=== PATIENT | male | born 1985 | race Caucasian/White ===

== ENCOUNTER 2017-02-14 15:51 | Emergency (ER) | payer OTHER, SELFPAY ==
[2017-02-14 15:56] VITALS: BMI 21.2
[2017-02-14 16:00] VITALS: BP 131/88; PULSE 79; RESP 18; TEMP 98.6; O2SAT 99
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
[2017-02-14] MEDS ORDERED: TDAP Vaccine 0.5 mL Syr IM ONE (18:51)
[2017-02-14] MEDS ORDERED: Bacitracin Ointment 30 GM TUBE TOP STA (18:52)
[2017-02-14] MEDS ORDERED: Naproxen 550 mg Tab PO STA (18:54)
--- NOTE | 2017-02-14 19:44 | RAD ---
HISTORY: pain COMPARISON: Chest x-ray performed 04/16/13 TECHNIQUE: Chest PA and lateral FINDINGS: LUNGS: No focal consolidation. Please note that chest x-ray has limited sensitivity for the detection of pulmonary masses. PLEURA: No significant pleural effusion identified. No definite pneumothorax . CARDIOVASCULAR: Heart size appears top normal. OSSEOUS STRUCTURES: No acute osseous abnormality identified. VISUALIZED UPPER ABDOMEN: Unremarkable. OTHER FINDINGS: None. IMPRESSION: No focal consolidation, significant pleural effusion, or definite pneumothorax identified.
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
--- NOTE | 2017-02-14 19:50 | RAD ---
PROCEDURE: Cervical Spine Radiographs. HISTORY: Pain. COMPARISON: None available. FINDINGS: BONES: Alignment appears satisfactory. No acute displaced fracture or subluxation identified. The dens appears intact. DISC SPACES: Unremarkable. SOFT TISSUES: Unremarkable. No prevertebral soft tissue swelling. OTHER FINDINGS: None. IMPRESSION: No acute displaced fracture or subluxation identified.
== END 2017-02-14 19:28 | disposition home or self-care (01) ==
LOC: ED 15:51
DX: S00.83XA Contusion of other part of head, initial encounter (principal); S16.1XXA Strain of muscle, fascia and tendon at neck level, initial encounter; V49.9XXA Car occupant (driver) (passenger) injured in unspecified traffic accident, initial encounter; Y92.410 Unspecified street and highway as the place of occurrence of the external cause; M54.9 Dorsalgia, unspecified; Z23 Encounter for immunization

== ENCOUNTER 2017-06-05 11:08 | Emergency (ER) | payer OTHER ==
[2017-06-05 11:08] VITALS: BMI 21.2
[2017-06-05 11:28] VITALS: TEMP 98.8
[2017-06-05] MEDS ORDERED: Sodium Chloride 0.9% 1,000 ML IV STA (12:09)
--- NOTE | 2017-06-05 12:14 | ED PDOC ---
Arrival/HPI - General Chief Complaint: ENT Problem Time Seen by Provider: 06/05/17 12:08 Historian: Patient - History of Present Illness Narrative History of Present Illness (Text): 06/05/17 12:13 pt p/w + worsening throat pain, and voice loss x 1 day; URI like symptoms 3-4 days ago; ? sick contact; + runny nose/congestion over the last few days; pt states no body aches, no headaches, + dry coughing; over the last day with difficulty swallowing due to throat pain, no drooling, lost his voice last night ; pt states no fever, ? subjective warmth, no chills/sweats, no cp/sob/ palpitations, no abd pain, no n/v, no numbness/tingling, no urinary/bowel changes, no fall/trauma/travel; pt denied other complaints pt is here for further eval. PCP: NONE immunization: not up to date Time/Duration: < week Symptom Onset: Sudden Symptom Course: Other (constant) Quality: Fullness Severity Level: Severe Activities at Onset: Rest Context: Home Past Medical History - Provider Review Nursing Documentation Reviewed: Yes - Travel History Have you recently traveled outside [place] w/in the past 3 mons?: No - Past History Past History: No Previous - Infectious Disease Hx of Infectious Diseases: None - Tetanus Immunization Tetanus Immunization: Unknown - Past Medical History Past Medical History: No Previous - Psychiatric Hx Psychophysiologic Disorder: No Hx Substance Use: No - Past Surgical History Past Surgical History: No Previous - Anesthesia Hx Anesthesia: No - Suicidal Assessment Feels Threatened In Home Enviroment: No Family/Social History - Physician Review Nursing Documentation Reviewed: Yes Family/Social History: No Known Family HX Smoking Status: Light Smoker < 10 Cigarettes Daily Hx Alcohol Use: Yes Hx Substance Use: No Hx Substance Use Treatment: No Allergies/Home Meds Allergies/Adverse Reactions: Allergies No Known Allergies Allergy (Verified 06/05/17 11:24) Review of Systems - Review of Systems Constitutional: Fatigue, Fevers (?) Eyes: Normal ENT: Voice Changes, Sore Throat. absent: Rhinorrhea, Sinus Congestion Respiratory: absent: SOB, Cough Cardiovascular: absent: Chest Pain Gastrointestinal: absent: Abdominal Pain, Nausea, Vomiting Genitourinary Male: Normal Musculoskeletal: Normal Skin: Normal Neurological: Normal Endocrine: Normal Hemo/Lymphatic: Normal Psychiatric: Normal Physical Exam Vital Signs Reviewed: Yes Vital Signs Temp Pulse Resp BP Pulse Ox 06/05/17 13:05 87 18 145/88 100 06/05/17 11:25 98.8 F 95 H 17 120/79 98 Temperature: Afebrile Blood Pressure: Normal Pulse: Tachycardic Respiratory Rate: Normal Appearance: Positive for: Well-Appearing, Non-Toxic, Uncomfortable, Other ( resting in bed, alert/awake, GCS = 15, oriented x 3, uncomfortable, moderate distress due to swallowing throat pain) Pain Distress: Moderate Mental Status: Positive for: Alert and Oriented X 3 - Systems Exam Head: Present: Atraumatic, Normocephalic Pupils: Present: PERRL, Other (no photophobia, sclera anicteric, no nystagmus, visual field intact b/l) Extroacular Muscles: Present: EOMI Conjunctiva: Present: Normal Ears: Present: Normal, NORMAL TM, Normal Canal. No: TM Bulging Mouth: Present: Moist Mucous Membranes, Normal Teeth, Other (no drooling/stridor , no dysphonia, + hoarseness to voice (lost of voice), no muffled voice, no crepitus) Pharnyx: Present: Normal, Other (+ anterior LAD b/l, non-fluctuant, + tenderness on exam). No: ERYTHEMA, EXUDATE, TONSILS ENLARGED Nose (External): Present: Atraumatic Nose (Internal): Present: Normal Inspection Neck: Present: Normal Range of Motion, Trachea Midline, Other (no midline tenderness, no setp off, no meningeal signs, no nuchal rigidity, intact ROM). No: MIDLINE TENDERNESS Respiratory/Chest: Present: Clear to Auscultation, Good Air Exchange, Other ( CTA b/l, no w/r/r) Cardiovascular: Present: Regular Rate and Rhythm, Normal S1, S2. No: Murmurs Abdomen: Present: Normal Bowel Sounds, Other (well nourished male, no focal tenderness, no luna's sign, no mcburney's point tenderness, no masses/rebound/ guarding/rigidity) Back: Present: Normal Inspection, Other (no gross deformities). No: CVA Tenderness, Midline Tenderness Upper Extremity: Present: Normal Inspection, Normal ROM, NORMAL PULSES, Neurovascularly Intact, Capillary Refill < 2s Lower Extremity: Present: Normal Inspection, NORMAL PULSES, Normal ROM, Neurovascularly Intact, Capillary Refill < 2 s. No: Edema, CALF TENDERNESS, Joanna's Sign, Deformity Neurological: Present: GCS=15, CN II-XII Intact, Speech Normal Skin: Present: Warm, Dry, Normal Color, Other (cap refill < 1 sec, no ulcerations, no petechiae) Psychiatric: Present: Alert, Oriented x 3 Medical Decision Making ED Course and Treatment: 06/05/17 12:13 Impression: throat pain, swallow difficulty i have consider all the differential diagnosis regarding pt's chief medical complaints/clinical findings, including but are not limited to: likely viral, unlikely bacterial; unlikely ludwigs A/P: throat pain, swallow difficulties - labs - iv - xray - observe - supportive care 06/05/17 14:42 pt is doing well pt is feeling improved, still with throat discomfort pt is able to swallow/eat/drink pt tolerated po well pt is made aware of his medical results pt is encouraged fluids pt will f/u as directed pt will be discharged home Re-evaluation Time: 14:42 Reassessment Condition: Improving,but remains with symptoms - Lab Interpretations Lab Results: 06/05/17 12:30 06/05/17 12:30 Lab Results 06/05/17 13:45: Influenza Typ A,B (EIA) Negative for flu a/b 06/05/17 13:30: Grp A Beta Strep Ag Negative 06/05/17 12:30: pO2 32, VBG pH 7.33, VBG pCO2 55.0, VBG HCO3 29.0 H, VBG Total CO2 30.7 H, VBG O2 Sat (Calc) 61.8, VBG Base Excess 1.9, VBG Potassium 4.3, Sodium 140.0, Chloride 105.0, Glucose 87, Lactate 1.0, FiO2 21.0, Venous Blood Potassium 4.3 06/05/17 12:30: Sodium 145, Chloride 105, Potassium 4.2, Carbon Dioxide 24, Anion Gap 19, BUN 13, Creatinine 0.7 L, Est GFR ( Amer) > 60, Est GFR ( Non-Af Amer) > 60, Random Glucose 87, Calcium 10.2, Total Bilirubin 0.5, AST 27 , ALT 36, Alkaline Phosphatase 72, Total Protein 8.4 H, Albumin 4.8, Globulin 3.6, Albumin/Globulin Ratio 1.3 06/05/17 12:30: WBC 6.7, RBC 5.45, Hgb 16.4, Hct 46.2, MCV 84.8, MCH 30.1, MCHC 35.5, RDW 13.1, Plt Count 178, MPV 11.8 H, Gran % 64.8, Lymph % (Auto) 23.1, [place] % (Auto) 11.5 H, Eos % (Auto) 0.3 L, Baso % (Auto) 0.3, Gran # 4.33, Lymph # (Auto) 1.5, [place] # (Auto) 0.8 H, Eos # (Auto) 0.0, Baso # (Auto) 0.02 I have reviewed the lab results: Yes Interpretation: All labs normal - RAD Interpretation Narrative RAD Interpretations (Text): Report Date : 06/05/2017 13:55:11 PROCEDURE: Radiographs of the neck (soft tissue). Dictator : Elizabeth Winter MD IMPRESSION: No evidence of radiopaque foreign body, airway obstruction or epiglottitis. Radiology Orders: 06/05/17 13:08 NECK SOFT TISSUE [RAD] Stat Riveter Helper: Radiologist - Medication Orders Current Medication Orders: Discontinued Medications Dexamethasone (Decadron Inj) 10 mg IVP STAT STA Stop: 06/05/17 12:12 Last Admin: 06/05/17 12:30 Dose: 10 mg IVP Administration Document 06/05/17 12:30 HI (Rec: 06/05/17 12:50 WA [id number]) Charges for Administration # of IVP Administrations 1 Sodium Chloride (Sodium Chloride 0.9%) 1,000 mls @ 999 mls/hr IV .Q1H1M STA Stop: 06/05/17 13:09 Last Admin: 06/05/17 12:48 Dose: 999 mls/hr eMAR Start Stop Document 06/05/17 12:48 HI (Rec: 06/05/17 12:49 [place] [id number]) Intravenous Solution Start Date 06/05/17 Start Time 12:49 Ketorolac Tromethamine (Toradol) 30 mg IVP STAT STA Stop: 06/05/17 12:13 Last Admin: 06/05/17 12:30 Dose: 30 mg MAR Pain Assessment Document 06/05/17 12:30 HI (Rec: 06/05/17 12:49 HI [id number]) Pain Reassessment Is this a pain reassessment? No Pain Scale Used Pain Scale Used Numeric Location Pain Location Body Site Throat Description Description Sharp Intensity of Pain at present 10 Pain Behavior Moaning Facial Grimacing IVP Administration Document 06/05/17 12:30 HI (Rec: 06/05/17 12:49 HI [id number]) Charges for Administration # of IVP Administrations 1 Lidocaine HCl (Lidocaine 2% Viscous) 15 ml MM STAT STA Stop: 06/05/17 12:13 Last Admin: 06/05/17 12:30 Dose: 15 ml Disposition/Present on Arrival - Present on Arrival Any Indicators Present on Arrival: No History of DVT/PE: No History of Uncontrolled Diabetes: No Urinary Catheter: No History of Decub. Ulcer: No History Surgical Site Infection Following: None - Disposition Have Diagnosis and Disposition been Completed?: Yes Diagnosis: Throat pain in adult, Viral pharyngitis Disposition: HOME/ ROUTINE Disposition Time: 14:46 Patient Plan: Discharge Patient Problems: Current Active Problems Problem Status Onset Throat pain in adult Acute Viral pharyngitis Acute Condition: STABLE Discharge Instructions (ExitCare): Viral Pharyngitis, Sore Throat in Adults Print Language: CITIZEN OF [place] Additional Instructions: Make sure to see your doctor in 1-2 days DRINK PLENTY OF FLUIDS take your medications as prescribed RETURN TO ED IF worse pain, cant breath, persistent vomiting, high fever >101- 102 for hours, altered behavior, unable to urinate, drooling/cant swallow, severe wheezing, heavy/persistent bleeding, passing out, chest pain, or other medical emergencies Prescriptions: Ibuprofen [Motrin] 400 mg PO QID PRN #30 tab PRN Reason: Pain, Mild (1-3) Lidocaine 2% Viscous 10 ml MM TID PRN #100 ml PRN Reason: Pain, Mild (1-3) Referrals: Mamadou Bailon MD [Primary Care Provider] - Follow up with primary [facility] [Outside] - [place] up with primary [facility] [place] - Follow up with primary Forms: [employer] (Citizen Of [place]), WORK NOTE
[2017-06-05 12:52] LABS: BASO # 0.02 K/mm3 (0.0-2.0); BASO % 0.3 % (0.0-3.0); EOS % 0.3 % (1.5-5.0); GRAN # 4.33 (1.4-6.5); GRAN % 64.8 % (50.0-68.0); HEMOGLOBIN 16.4 g/dL (14.0-18.0); LYMPH # 1.5 (1.2-3.4); LYMPH % 23.1 % (22.0-35.0); MEAN CELL VOLUME 84.8 fl (80.0-105.0); MEAN CORPUSCULAR HEMOGLOBIN 30.1 pg (25.0-35.0); MEAN CORPUSCULAR HGB CONC 35.5 g/dl (31.0-37.0); MEAN PLATELET VOLUME 11.8 fl (7.0-11.0); MONO # 0.8 (0.1-0.6); MONO % 11.5 % (1.0-6.0); RBC 5.45 10^6/uL (3.5-6.1); RED CELL DISTRIBUTION WIDTH 13.1 % (11.5-14.5); VENOUS BLOOD GAS BASE EXCESS 1.9 mmol/L (0.0-2.0); VENOUS BLOOD GAS PO2 32 mm/Hg (30-55); VENOUS BLOOD PH 7.33 (7.32-7.43); WHITE BLOOD COUNT 6.7 10^3/ul (4.5-11.0)
[2017-06-05 13:05] VITALS: RESP 18
[2017-06-05 13:05] LABS: ALB/GLOB RATIO 1.3 (1.1-1.8); ALBUMIN 4.8 g/dL (3.0-4.8); ALT/SGPT 36 U/L (7-56); AST/SGOT 27 U/L (17-59); BLOOD UREA NITROGEN 13 mg/dL (7-21); CALCIUM 10.2 mg/dL (8.4-10.5); GFR AFRICAN-AMERICAN > 60; GFR NON-AFRICAN AMERICAN > 60
--- NOTE | 2017-06-05 13:56 | RAD ---
PROCEDURE: Radiographs of the neck (soft tissue). HISTORY: Neck pain, swallow pain COMPARISON: None. TECHNIQUE: Frontal and Lateral Radiographs of the neck, optimized for soft tissue visualization. FINDINGS: SOFT TISSUES: There is no prevertebral soft tissue thickening. No radiopaque foreign body. The epiglottis is normal in thickness and appearance. The airways are patent the CERVICAL SPINE: Grossly unremarkable. OTHER FINDINGS: None. IMPRESSION: No evidence of radiopaque foreign body, airway obstruction or epiglottitis.
[2017-06-05 15:21] VITALS: BP 147/83; PULSE 88; O2SAT 97
== END 2017-06-05 15:03 | disposition home or self-care (01) ==
LOC: ED 11:08
DX: J02.8 Acute pharyngitis due to other specified organisms (principal); B97.89 Other viral agents as the cause of diseases classified elsewhere; F17.210 Nicotine dependence, cigarettes, uncomplicated
CPT/HCPCS: 70360; 80053; 82803; 85025; 87070; 87430; 87804; 96374; 96375; 99284; J1100; J1885; J7040